=== PATIENT | female | born 1940 | race Caucasian/White ===

== ENCOUNTER 2017-01-27 05:36 | Day surgery (SDC) | payer OTHER ==
[2017-01-19 16:53] LABS: HEMATOCRIT 36.2 % (36.0-48.0); HEMOGLOBIN 11.6 g/dL (12.0-16.0)
[2017-01-19 17:01] LABS: CALCIUM, SERUM 8.4 MG/DL (8.5-10.4); CHLORIDE, SERUM 111 MMOL/L (96-112); CREATININE 1.07 MG/DL (0.55-1.02); GFR AFRICAN AMERICAN 59 ML/MIN (>=60); GFR NON AFRICAN AMERICAN 51 ML/MIN (>=60); GLUCOSE, SERUM 84 MG/DL (60-99); POTASSIUM, SERUM 4.7 MMOL/L (3.5-5.3); SODIUM, SERUM 145 MMOL/L (135-148)
[2017-01-19 17:02] LABS: BUN (BLOOD UREA NITROGEN) 12 MG/DL (6-23); CO2 (CARBON DIOXIDE) 33 MMOL/L (24-34)
--- NOTE | ~2017-01-27 | OP ---
Record Of Operation [facility] [address] [place]. [address] NAME: DIAMANTE ROBERTS : 42 [place] : [facility] [place] [id number] AGE: 76 ADM/REG DATE : 01/27/17 MR#: [id number] REPORT SERV DATE: 01/27/17 DICTATED BY: ENDY BRADLEY DATE: 01/27/17 REPORT STATUS : Draft TRANSCRIBED BY: MODL DATE: 01/27/17 DATE OF PROCEDURE: 01/27/2017 PREOPERATIVE DIAGNOSIS: Painful retained hardware, lumbar spine, L3-5. POSTOPERATIVE DIAGNOSIS: Painful retained hardware, lumbar spine, L3-5. PROCEDURE: Microscopic and navigation-assisted hardware removal, L3-5. BULL WHEEL WORKER: Ambrosio Murray. ANESTHESIA: General. BLOOD LOSS: 20 mL. INDICATIONS FOR SURGERY: A 76-year-old female who has had a previous fracture at L4. She had fracture repair and also posterior stabilization with percutaneous hardware fixation, L3 L5. The fracture has healed. She is doing well, but she is so thin the hardware is very prominent. If she tries to sit in a chair, she gets pain and pressure from just the hardware itself. She is now being brought to surgery for hardware removal due to the pain and the local prominence. Prior to surgery, risks, benefits, alternatives, and expectations were explained. Consent form has been signed. Also, please note, today in the preop holding after identifying the patient once again and we answered the questions, I went through the risk and she verified she understood and was willing to proceed. PROCEDURE IN DETAIL: Antibiotic prophylaxis given, brought to the operative suite. General anesthetic including endotracheal intubation was administered. She was placed prone on a Jsoe spine frame. Bony prominences were carefully padded. Thoracolumbar spine scrubbed with Hibiclens solution. DuraPrep was painted. Sterile drapes applied. A small stab wound was carried out over the right posterior superior iliac spine. A percutaneous pin with navigational frame attached was inserted in PSIS. Intraoperative CT scan with O-arm obtained. CT information used to register the navigational system. With navigational assistance, I was able to identify the location of the hardware. In the mid portion of the cristal between the two screws at L3 and L5, a 2 cm skin incision was carried out. A blunt navigated probe placed through the fascia muscle and docked over the hardware. I initially started inferiorly, identifying the screw head. The set screw was removed. We then translated the tubular retractor to the proximal portion over the screw. Once again, the screw head was identified and the set screw removed. The cristal was removed followed by removal of both the screws. The superior and inferior screws were removed without difficulty, the wound was irrigated, and the retractor was removed. At the end of the case, Record Of Operation [address] [place]. [address] NAME: DIAMANTE ROBERTS : 42 [place] : [facility] [place] [id number] AGE: 76 ADM/REG DATE : 01/27/17 MR#: [id number] REPORT SERV DATE: 01/27/17 DICTATED BY: ENDY BRADLEY DATE: 01/27/17 REPORT STATUS : Draft TRANSCRIBED BY: MARIYA DATE: 01/27/17 the fascia closed with interrupted #1 Vicryl sutures. We then moved to the left side. I carried out the same 2 cm navigation-assisted incision and exposed the hardware, removed the hardware as outlined above. Once again, the wound was irrigated. The fascia closed. Local anesthetic was administered. Sterile dressings applied. The patient returned to supine position, awakened, extubated, taken to recovery room in satisfactory condition having tolerated procedure well. LYNETTE/MARIYA Endy Bradley D.O. / [id number] CC: Tristan Archer M.D.
[~2017-01-27 05:36] MED LIST: ACET500CAP PO; AMB10 PO; AMB5 PO; AMIODARONE PO; AMOXIL500 MG PO; AQUASOL E50 UNT/ML PO; ASAB PO; ATV.5 PO; B12100T PO; B12250T PO; BEN25 PO; BETAP120 PO; BIOTIN5 MG PO; C1 PO; C2 PO; C25 PO; CALTRA600D PO; CORDARONE PO; COREG12 PO; COREG25 PO; COREG6 PO; COUMADIN; COUMADIN4 MG PO; CYMBALTA20 PO; DIGITEK0.125 MG PO; DIL2TAB PO; FISH-EPA1000 MG PO; FLEX PO; HARD NAILS OR; HARD NAILS PO; JANTOVEN2 MG PO; JANTOVEN2.5 MG PO; JANTOVEN3 MG PO; K500 PO; KLOR-CON M2020 MEQ PO; L20 PO; LAN125 PO; LAN25 PO; LEVOTHROID50 MCG PO; LEVOTHROID75 MCG PO; LEVOTHYROXIN50 MCG PO; LEVOTHYROXIN75 MCG PO; LIPITOR10 PO; METHOC500B PO; METHOC750B PO; MOBIC15 MG PO; MOMUD PO; MULTI-VIT HP OR; MULTIVITAMI1 PO; NEBULIZER MED INH; NEUR100 PO; NEUR300 PO; OXYIR5 MG PO; P20 PO; PACERONE200 MG PO; PAX10 PO; PAX20 PO; PCET PO; PRIN10 PO; PRIN2.5 PO; PRIN20 PO; SENTAB PO; T PO; TESS PO; TOPXL25 PO; TOPXL50 PO; TORATAB PO; ULTRACET PO; ULTRAM50 PO; VICODIN PO; VIT B PO; VIT E PO; VITAMIN B-121000 MC1 SL; VITAMIN D1000 UNI1 PO; VITAMIN D31000 UNIT PO; VITC500 PO; VITE PO; ZANAFLEX 4 MG TA4 MG PO; [UNRECOGNIZED DRUG - OTHER] PO
[2017-01-27 06:30] LABS: INTERNATIONAL NORMAL RATI 1.1 UNITS (-); PROTIME (NOT ORD) 14.2 SEC (12.0-14.5)
== END 2017-01-27 13:04 | disposition home or self-care (01) ==
LOC: SDC 05:36
PROVIDERS: Orthopaedic Surgery Orthopaedic Surgery of the Spine
PROC: 00P Central Nervous System and Cranial Nerves, Removal (ICD-10-PCS; 2017-01-27)
PROC: 00PV0JZ Removal of Synthetic Substitute from Spinal Cord, Open Approach (ICD-10-PCS; principal; 2017-01-27 07:00)
DX: T84.84XA Pain due to internal orthopedic prosthetic devices, implants and grafts, initial encounter (principal); I48.91 Unspecified atrial fibrillation; M19.90 Unspecified osteoarthritis, unspecified site; E03.9 Hypothyroidism, unspecified; F41.9 Anxiety disorder, unspecified; F32.9 Major depressive disorder, single episode, unspecified; Z88.5 Allergy status to narcotic agent; Z87.891 Personal history of nicotine dependence; Z90.49 Acquired absence of other specified parts of digestive tract; Z90.710 Acquired absence of both cervix and uterus; Z98.890 Other specified postprocedural states
CPT/HCPCS: 36415; 80048; 85014; 85018; 85610; 88300; 93005; A9270-GY; J0690; J1170; J2250; J2370; J2405; J2710; J3010